=== PATIENT | male | born 1995 | race Caucasian/White ===

== ENCOUNTER 2017-02-17 07:39 | Day surgery (SDC) | payer OTHER ==
[2017-02-11 17:18] VITALS: BMI 19.3
[2017-02-17] MEDS ORDERED: ACETAMINOPHEN 500 MG TABLET (FP) PO PRN (08:42)
[2017-02-17] MEDS ORDERED: BUPIVACAINE HCL/PF 0.5% (5MG/ML) 10 ML VIAL ONE (08:46)
[2017-02-17] MEDS ORDERED: POVIDONE-IODINE 5% OPHTHALMIC PREP 30 ML SOLUTION ONE (08:46)
[2017-02-17] MEDS ORDERED: LIDOCAINE 1%-EPI 1:100,000 30 ML MDV IJ ONE (08:46)
[2017-02-17] MEDS ORDERED: MIDAZOLAM HCL 2 MG/2 ML SINGLE DOSE VIAL ONE (08:55)
[2017-02-17] MEDS ORDERED: ONDANSETRON 4 MG/2 ML VIAL ONE (09:09)
[2017-02-17] MEDS ORDERED: PROPOFOL 20 ML ONE ×3 (09:09)
[2017-02-17] MEDS ORDERED: DEXAMETHASONE SOD PHOSPHATE 4 MG/1 ML VIAL ONE (09:10)
[2017-02-17] MEDS ORDERED: oxyCODONE HCL 5 MG TABLET PO PRN (09:56)
[2017-02-17 12:22] VITALS: BP 109/63; PULSE 47; TEMP 98
--- NOTE | 2017-02-17 12:54 | OP ---
DATE OF OPERATION: 02/17/2017 PREOPERATIVE DIAGNOSIS: Multiple abscesses right lower lid and lesion upper lid far laterally. POSTOPERATIVE DIAGNOSIS: Multiple abscesses right lower lid and lesion upper lid far laterally. PROCEDURE: 1. Transconjunctival incision and drainage of extensive right lower lid abscess in addition to transcutaneous drainage of the abscess with multiple cultures and biopsy. 2. Drainage and biopsy of lesion of the left upper lid. SURGEON: Delmi Portillo M.D. ANESTHESIA: Local with sedation. COMPLICATIONS: None. ESTIMATED BLOOD LOSS: 2 to 3 mL. OPERATION: The patient was brought to the operating room and placed on the operating room table. A time-out was performed. Tetracaine was placed in both eyes. Subcutaneous injection of 2% Xylocaine with 1:100,000 epinephrine with 5% Marcaine was placed subcutaneously in both upper lids in the areas of the lesions. The right lower lid, a clamp was placed over the right lower lid and the lid was everted and then a large abscess was drained transconjunctivally. The tarsus was biopsied and the abscess, which involved two-thirds of the eyelid, was sent for culture and for AFB and fungus. It was completely curettaged and removed until there was no further discharge, and then the lid was turned over, and from the outside each of the 3 draining areas was incised and curettaged and opened to the air. Bacitracin was placed in the eye and then the eye was closed using 2 eye pads using tape were placed over the eye. The left upper lid was secured with chalazion clamp. Interval cautery was used on the right upper lid. The left upper lid was everted with chalazion clamp and the internal prominence of the lesion was noted and it was incised in cruciate fashion, drained with a curette, cultured, and sent for AFB and fundus as well as culture and sensitivity. It was completely drained. The tarsus was biopsied. Bacitracin was placed in the eye and cautery was used for hemostasis. The patient was taken to the recovery room in stable condition. DELMI PORTILLO M.D. [id number]
--- NOTE | 2017-02-18 13:34 | PATH ---
Surgical Pathology Report Patient Name: EULA FONTANA Med. Rec. #: [id number] /Age/Gender: 1995 (Age: 22) / M Account: [id number] Location: [facility] Taken: 02/17/2017 Received: 02/17/2017 Reported: 02/18/2017 Physicians: Elia Sarkar Specimen(s) Received A: RIGHT LOWER EYELID BX B: LEFT UPPER EYELID BX Clinical History Right lower eyelid abscess, left upper eyelid abscess Final Diagnosis A. EYELID, RIGHT LOWER, BIOPSY: SKIN SHOWING ULCERATION, ABSCESS FORMATION AND CHRONIC INFLAMMATION. B. EYELID, LEFT UPPER, BIOPSY: SKIN SHOWING ULCERATION AND ABSCESS FORMATION. Electronically Signed Elissa Heath M.D. Gross Description A. Received in formalin labeled "right lower eyelid biopsy," is a 0.2 cm greatest dimension land skin fragment. The specimen is submitted in toto in one cassette. B. Received in formalin labeled "left upper eyelid biopsy," is a 0.2 cm in greatest dimension land skin fragment. The specimen is submitted in toto in one cassette. /02/17/201702/17/2017
== END 2017-02-17 12:00 | disposition home or self-care (01) ==
LOC: FASU 07:39
PROVIDERS: ATTEND Ophthalmology
PROC: 0H91XZX Drainage of Face Skin, External Approach, Diagnostic (ICD-10-PCS; 2017-02-17)
PROC: 08BQ0ZX Excision of Right Lower Eyelid, Open Approach, Diagnostic (ICD-10-PCS; 2017-02-17)
PROC: 08BP0ZX Excision of Left Upper Eyelid, Open Approach, Diagnostic (ICD-10-PCS; 2017-02-17)
PROC: 0H91XZX Drainage of Face Skin, External Approach, Diagnostic (ICD-10-PCS; 2017-02-17)
PROC: 0H91XZX Drainage of Face Skin, External Approach, Diagnostic (ICD-10-PCS; principal; 2017-02-17 09:00)
DX: H00.032 Abscess of right lower eyelid (principal); H00.034 Abscess of left upper eyelid
CPT/HCPCS: 87070; 87102; 87205; 87210; 88305-TC; 94760